=== PATIENT | female | born 1955 | race Caucasian/White ===

== ENCOUNTER 2017-01-30 13:29 | Outpatient (CLI) | payer OTHER ==
--- NOTE | 2017-01-30 15:39 | CARDIAC PROCEDURE NOTE ---
DATE OF SERVICE: 01/30/2017 00:00:00 PRIMARY CARE PHYSICIAN: Kae Munoz PA-C, [facility]. PROCEDURE: Cardiac treadmill stress test. PROCEDURE SYMPTOMS: Chest pain and dizziness. CARDIAC RISK FACTORS: Include age. PREVIOUS CARDIAC PROCEDURES: None. CLINICAL HISTORY: A 61-year-old female without known coronary artery disease. INITIAL RESTING VITAL SIGNS: Blood pressure 122/66, heart rate 57, height 59 inches, weight 220 pound s, BMI 44.4. PROCEDURE AND FINDINGS: The patient's identity and date verified. Consent signed. The patient p erformed treadmill exercise using a modified Dick protocol, completing 7 minutes 17 seconds and comp leting an estimated workload of 5.8 metabolic equivalents. Maximal blood pressure was 144/76 with a h eart rate of 149 beats per minute or 93% of maximum predicted heart rate for age. The blood pressure response to exercise was within normal limits. The patient stopped because of fatigue. The resting EC G demonstrated normal sinus rhythm with no abnormality. Maximum ST segment depression was less than 0 .5 mm and upsloping. There was no ectopy. FINAL IMPRESSION 1. Modified Dick used as patient was unable to tolerate speeds at stage 2. 2. Negative stress electrocardiogram for ischemia by electrocardiographic criteria. 3. Negative stress test clinically for angina. 4. No ectopy nor arrhythmia. 5. Achieved predicted time and METs for sedentary woman of this age. JOB #: [id number] EXT JOB #:[id number]
--- NOTE | 2017-02-05 09:10 | XRAY Report ---
There was no imaging performed for this exam. Procedure notes and results available in the EMR. PRIYA
[2017-02-06 17:54] VITALS: BP 122/66
== END 2017-01-30 13:30 | disposition home or self-care (01) ==
LOC: DI 13:29
PROVIDERS: ATTEND Physician Assistant
DX: R07.2 Precordial pain (principal)
CPT/HCPCS: 93017

== ENCOUNTER 2017-09-11 13:39 | Emergency (ER) | payer OTHER ==
[2017-09-11] MEDS ORDERED: ALPRAZolam 0.25 MG TABLET PO STA (14:38)
[2017-09-11 14:46] LABS: BILIRUBIN,URINE NEGATIVE (NEGATIVE); GLUCOSE, URINE (UA) NEGATIVE (NEGATIVE); KETONES,URINE (UA) TRACE mg/dL (NEGATIVE); LEUKOCYTE ESTERASE, URINE NEGATIVE (NEGATIVE); NITRITE,URINE NEGATIVE (NEGATIVE); OCCULT BLOOD,URINE NEGATIVE (NEGATIVE); PH,URINE 6.5 PH (5.0-7.5); PROTEIN,URINE NEGATIVE (NEGATIVE); UROBILINOGEN,URINE 0.2 (NORMAL) E.U./dL (NORMAL)
[2017-09-11 14:47] LABS: CLARITY,URINE CLEAR (CLEAR)
--- NOTE | 2017-09-11 16:18 | MRI Report ---
EXAM: MRI LUMBAR SPINE WITHOUT CONTRAST EXAM DATE: 09/11/2017 03:42 PM. CLINICAL HISTORY: Low back pain. Left leg and groin pain and numbness and tingling. COMPARISON: None. TECHNIQUE: Multiplanar, multisequence T1-weighted and fluid-sensitive sequences of the lumbar spine f rom T12 to S1 without contrast. Other: None. FINDINGS: Spinal Cord: The conus terminates at L1-L2. The conus medullaris and cauda equina are unremarkable. Alignment: Grade 1 anterolisthesis at L4-L5 by approximately 2 mm. Bone Marrow: Five uvs-ykd-ehdonec lumbar vertebral bodies are assumed. No gross fractures or bone les ions. No bone marrow edema. Disk Levels/Facets: T12-L1: Unremarkable. L1-L2: Unremarkable. L2-L3: Mild to moderate facet arthropathy. No stenoses. L3-L4: Small right foraminal disk protrusion. Moderate to severe ligamentum flavum thickening. Modera te to severe facet arthropathy. Mild canal stenosis. Mild right foraminal stenosis. L4-L5: Minimal diffuse disk bulge. Severe ligamentum flavum thickening and facet arthropathy. Small f acet joint effusions. Mild to moderate canal stenosis. Mild to moderate right and moderate left elisabeth inal stenoses. L5-S1: Hypoplastic disk. The left side of L5 vertebral segment is sacralized. No stenoses. Mild left facet arthropathy. Musculature: Mild fatty atrophy of the posterior paraspinal muscles. Other: The partially visualized retroperitoneum is unremarkable. IMPRESSION: 1. Multilevel degenerative disk changes, ligamentum flavum thickening, and facet arthropathy. The mor e significant levels are L4-L5 and L3-L4. 2. Minimal diffuse disk bulge at L4-L5. Gdlv-qi-aurtqyoa canal stenosis. Lqps-ms-hhzoffmt right and m oderate left foraminal stenoses. 3. Small right foraminal disk protrusion at L3-L4. Mild canal and right foraminal stenoses. 4. Grade 1 degenerative anterolisthesis at L4-L5. Comment: The following findings are so common in adults without low back pain that while we report th eir presence, they must be interpreted with caution and in the context of the clinical situation. (Re britta Garcia et al, Spine 2001) Prevalence of findings in patients without low back pain: Disk degeneration (any evidence): 92% Disk desiccation/T2 signal loss: 83% Disk height loss: 56% Disk bulge: 64% Disk protrusion: 32% Annular tear/high intensity zone: 38% [facility] Referring Provider Line: [phone] SITE ID: [id number]
[2017-09-11 16:19] VITALS: BP 124/69
--- NOTE | 2017-09-11 16:23 | ED Physician Documentation ---
PD HPI BACK PAIN - Stated complaint Stated Complaint: HEADACHE/NECK PX-BACK-LEG PX--NUMBNESS - Chief complaint Chief Complaint: General - History obtained from History obtained from: Patient - History of Present Illness Timing - duration: Months (many) Timing - details: Still present Location: Lower, Left Quality: Pain Associated symptoms: Numbness (left leg) Recently seen: Clinic - Additional information Additional information: The patient is a 61-year-old female who presents with lower back pain radiating down her left leg. She has had similar pain waxing and waning for months, but presents now because of numbness in her left leg. She was seen by her primary physician in clinic today and was sent to the emergency department for further evaluation. She denies any recent injury. She denies fever or dysuria. She has chronic urinary incontinence. In addition to numbness in her left leg she reports numbness in her left perineal region. Review of Systems Constitutional: denies: Fever Nose: denies: Congestion Cardiac: denies: Chest pain / pressure Respiratory: denies: Dyspnea, Cough GI: denies: Abdominal Pain, Nausea, Vomiting : reports: Incontinent (chronically). denies: Dysuria Skin: denies: Rash Musculoskeletal: reports: Back pain (lower back). denies: Neck pain Neurologic: reports: Numbness (left leg.). denies: Focal weakness, Headache PD PAST MEDICAL HISTORY - Past Medical History Past Medical History: Yes Endocrine/Autoimmune: HyPOthyroidism Other Past Medical History: Short time memory - Past Surgical History Past Surgical History: Yes /[employer]: section - Present Medications Home Medications: Ambulatory Orders Medication Instructions Recorded Confirmed predniSONE [Prednisone] 30 mg PO DAILY #15 tablet 09/11/17 - Allergies Allergies/Adverse Reactions: Allergies Allergy/AdvReac Type Severity Reaction Status Date / Time No Known Drug Allergies Allergy Verified 09/11/17 14:04 - Social History Does the pt smoke?: No Smoking Status: Never smoker Does the pt drink ETOH?: No Does the pt have substance abuse?: No - Immunizations Immunizations are current?: Yes - POLST Patient has POLST: No PD ED PE NORMAL - Vitals Vital signs reviewed: Yes (hypertensive) - General General: Alert and oriented X 3, Well developed/nourished, Other (obese) - HEENT HEENT: Atraumatic - Neck Neck: No bony TTP, No adenopathy - Cardiac Cardiac: RRR, No murmur - Respiratory Respiratory: No respiratory distress, Clear bilaterally - Abdomen Abdomen: Soft, Non tender - Back Back: No CVA TTP, No spinal TTP, Other (There is tenderness to palpation over the left sacroiliac region. No tenderness over the spinous processes.) - Derm Derm: No rash - Extremities Extremities: No edema, No calf tenderness / cord, Other (Straight leg raise test is negative bilaterally.) - Neuro Neuro: Alert and oriented X 3, No motor deficit, Other (There is decreased light touch sensation on the lateral aspect of the left lower leg. Deep tendon reflexes are 2+ and equal bilaterally at the patellar and Achilles tendons.) Results - Vitals Vitals: Oxygen O2 Source Room air - Labs Labs: Laboratory Tests 09/11/17 14:23 Urine Color YELLOW Urine Clarity CLEAR Urine pH 6.5 Ur Specific [place] 1.020 Urine Protein NEGATIVE Urine Glucose (UA) NEGATIVE Urine Ketones TRACE Urine Occult Blood NEGATIVE Urine Nitrite NEGATIVE Urine Bilirubin NEGATIVE Urine Urobilinogen 0.2 (NORMAL) Ur Leukocyte Esterase NEGATIVE Ur Microscopic Review NOT INDICATED Urine Culture Comments NOT INDICATED - Rads (name of study) MRI lumbar spine Radiology: Prelim report reviewed, EMP read contemporaneously, See rad report (1 ) Multilevel degenerative disc changes, ligamentum flavum thickening, and facet arthropathy. The more significant levels are L4-L5 and L3-L4. 2) Minimal diffuse disc bulge at L4-L5. Mild to moderate canal stenosis. Mild to moderate right and moderate left foraminal stenoses. 3) Small right foraminal disc protrusion at L3-L4. Mild canal and right foraminal stenoses. 4) grade 1 degenerative anterolisthesis at L4-L5.) PD MEDICAL DECISION MAKING - ED course Complexity details: reviewed results, re-evaluated patient, considered differential, d/w patient, d/w family ED course: The patient's presentation is most consistent with lower back pain with left sided radiculopathy. An MRI of the lumbar spine revealed multilevel degenerative arthropathy, as well as mild to moderate canal stenosis, and moderate left foraminal stenoses. Treatment in the emergency department included administration of dexamethasone 10 mg orally. Because of claustrophobia, the patient was given Xanax 0.5 mg orally prior to going into the MRI scanner. Her symptoms improved with the above treatment. She is being discharged with prescription for prednisone. I discussed with her and her family the results of the MRI scan, symptomatic treatment and outpatient follow-up, as well as potentially worrisome signs or symptoms that should prompt reevaluation in the emergency department. Departure - Departure Disposition: 01 Home, Self Care Clinical Impression: Low back pain radiating to left leg, Lumbar radiculopathy Condition: Stable Instructions: ED Sciatica Follow-Up: DONNY ZARAGOZA MD [Primary Care Provider] - Prescriptions: predniSONE [Prednisone] 30 mg PO DAILY #15 tablet Comments: Apply ice pack to your lower back intermittently. Take prednisone daily for the next 5 days as prescribed. You can use ibuprofen, up to 800 mg 3 times daily for its anti-inflammatory effect. Let pain be your guide to activity level. Follow up with your primary physician within 2 weeks. Call to schedule appointment. Return to the emergency department if you develop increasing back pain, increasing numbness or weakness, or otherwise worsening symptoms. Discharge Date/Time: 09/11/17 16:42
[2017-09-11] MEDS ORDERED: DEXAMETHASONE 10 MG/ML VIAL PO STA (16:32)
== END 2017-09-11 16:42 | disposition home or self-care (01) ==
LOC: ED 13:39
DX: M54.5 Low back pain (principal); M54.16 Radiculopathy, lumbar region; E03.9 Hypothyroidism, unspecified
CPT/HCPCS: 72148; 81003; 99283; 99284; A9270; 81001; 87086

== ENCOUNTER 2018-12-03 06:43 | Day surgery (SDC) | payer OTHER ==
[2018-12-03] MEDS ORDERED: PHENYLEPHRINE 2.5% OPHTH 2 ML DROPS ONE (06:44)
[2018-12-03] MEDS ORDERED: KETOROLAC 0.45% OPHTH DROPS ONE (06:44)
[2018-12-03] MEDS ORDERED: CYCLOPENTOLATE 1% OPHTH DROPS 2 ML ONE (06:44)
[2018-12-03] MEDS ORDERED: LACTATED RINGERS 500 ML IV ONE (06:44)
[2018-12-03] MEDS ORDERED: PROPARACAINE 0.5% OPHTH DROPS 15 ML ONE (06:45)
[2018-12-03] MEDS ORDERED: PROPARACAINE 0.5% OPHTH DROPS 15 ML LEFTEYE ONE (07:00)
[2018-12-03] MEDS ORDERED: CYCLOPENTOLATE 1% OPHTH DROPS 2 ML LEFTEYE ONE (07:00)
[2018-12-03] MEDS ORDERED: PHENYLEPHRINE 2.5% OPHTH 2 ML DROPS LEFTEYE ONE (07:00)
[2018-12-03] MEDS ORDERED: KETOROLAC 0.45% OPHTH DROPS LEFTEYE ONE (07:00)
[2018-12-03] MEDS ORDERED: VANCOMYCIN OPHTHALMI 8MG/0.8ML 8 MG/0.8 ML SYRINGE IO ONE ×2 (07:06→08:13)
[2018-12-03] MEDS ORDERED: BRIMONIDINE 0.2% OPHTH DROPS 5 ML ONE (07:06)
[2018-12-03] MEDS ORDERED: TIMOLOL 0.5% OPHTH DROPS ONE (07:06)
[2018-12-03] MEDS ORDERED: BSS/LIDOCAINE/EPINEPHRINE 1 ML SYRINGE ONE (07:06)
[2018-12-03] MEDS ORDERED: TRIAMCIN/MOXIFLOX OPHTHALMIC 0.6 ML VIAL IO ONE ×2 (07:06→08:13)
--- NOTE | 2018-12-03 07:30 | ANESTHESIA ---
Pre-Anesthesia VS, & Labs - Diagnosis left eye senile combined cataract - Procedure cataract extraction with probable intraocular lens implant left eye Height 4 ft 11 in Weight (kg) 101 kg Body Mass Index 44.8 - NPO >8 hours - Is Patient ?: No Home Medications and Allergies Home Medications: Ambulatory Orders Donepezil HCl 10 mg PO DAILY 12/02/18 Levothyroxine Sodium [Synthroid] 50 mcg PO DAILY 12/02/18 Methocarbamol 250 mg PO DAILY 12/02/18 Pantoprazole [Protonix] 40 mg PO DAILY 12/02/18 Donepezil HCl 10 mg PO DAILY 12/02/18 Levothyroxine Sodium [Synthroid] 50 mcg PO DAILY 12/02/18 Methocarbamol 250 mg PO DAILY 12/02/18 Pantoprazole [Protonix] 40 mg PO DAILY 12/02/18 Allergies/Adverse Reactions: Allergies Allergy/AdvReac Type Severity Reaction Status Date / Time No Known Drug Allergies Allergy Verified 09/11/17 14:04 Anes History & Medical History - Anesthetic History Anesthesia Complications: reports: No previous complications - Medical History Cardiovascular: reports: None Pulmonary: reports: None Gastrointestinal: reports: GERD (controlled with medication) Urinary: reports: None Neuro: reports: None Musculoskeletal: reports: None Endocrine/Autoimmune: reports: HyPOthyroidism Skin: reports: None Smoking Status: Never smoker Psychosocial: reports: No issues indicated - Surgical History General: Other (gastric bypass) Gynecologic: section Exam General: Alert, Oriented x3, Cooperative, No acute distress Dental: WNL Mouth Openin Fingerbreadth Neck Mobility: Normal Mallampati classification: I Thyromental Distance: greater than 6 cm Respiratory: Lungs clear, Normal breath sounds, No respiratory distress, No accessory muscle use Cardiovascular: Regular rate, Normal S1, Normal S2, No murmurs Mental/Cognitive Status: Alert/Oriented X3, Normal for patient Plan Anesthesia Type: MAC Consent for Procedure(s) Verified and Reviewed: Yes Code Status: Attempt Resuscitation ASA classification: 2-Mild systemic disease Is this case an emergency?: No
[2018-12-03] MEDS ORDERED: fentaNYL 100 MCG/2 ML VIAL IVP ONE (08:00)
[2018-12-03] MEDS ORDERED: MIDAZOLAM 2 MG/2 ML VIAL IVP ONE (08:00)
[2018-12-03] MEDS ORDERED: EPINEPHrine 1 MG/ML AMP IVP ONE (08:12)
[2018-12-03] MEDS ORDERED: TIMOLOL 0.5% OPHTH DROPS OPTH ONE (08:12)
[2018-12-03] MEDS ORDERED: CHONDR SULF/HYALURONATE SYRINGE IO ONE (08:12)
[2018-12-03] MEDS ORDERED: BSS/LIDOCAINE/EPINEPHRINE 1 ML SYRINGE IO ONE (08:12)
[2018-12-03] MEDS ORDERED: BRIMONIDINE 0.2% OPHTH DROPS 5 ML OPTH ONE (08:12)
[2018-12-03 08:33] VITALS: BP 118/65
--- NOTE | 2018-12-03 08:38 | OPERATIVE REPORT ---
DATE OF SERVICE: 12/03/2018 Physician: Jasbir Billings MD PREOPERATIVE DIAGNOSIS: Visually significant cataract, left eye. This was her first cataract surgery. POSTOPERATIVE DIAGNOSIS: Visually significant cataract, left eye. PROCEDURE: Phacoemulsification with posterior chamber intraocular lens implant, left eye. SURGEON: Dr. Jasbir Billings. ANESTHESIA: Monitored anesthesia care. COMPLICATIONS: None. OPERATIVE INDICATIONS: This is a 63-year-old woman with progressive vision loss in the left eye due to 1+ nuclear sclerotic and 3+ cortical cataract. Best corrected visual acuity was 20/20 with glare to 20/60 in the left eye. Indications for surgery are difficulty seeing words on a computer screen, difficulty reading, difficulty seeing words, closed captions or game scores on TV, difficulty seeing street signs, difficulty driving in low light or at night, difficulty driving at night because of hea dlights from other vehicles, and difficulty with glare or bright lights in any situation. She was co nsented at length concerning risks and benefits of cataract surgery, after which she expressed a martha re to proceed with surgery. OPERATIVE PROCEDURE: Patient was taken into OR #3 and placed under monitored anesthesia care. A donna gical timeout was conducted confirming correct patient, correct procedure, and correct surgical site. She was given topical anesthesia, then prepped and draped in the usual sterile fashion. The eye was entered at the 6 and 3 o'clock positions. Intracameral Shugarcaine was injected into the anterior chamber, followed by Viscoat. A continuous-tear curvilinear capsulorrhexis was performed. The nucleus was hydrodissected and phacoemulsified. The cortex was evacuated using automated infusi on and aspiration. Provisc was injected in the capsular bag, and a 22.0 diopter intraocular lens ins erted in the bag. Approximately 0.8 mL of a mixture of triamcinolone, moxifloxacin and vancomycin wa s injected subconjunctivally in the superior quadrant for infection and inflammation prophylaxis. I and A was used to evacuate the viscoelastic materials. The eye was inflated to physiologic pressure using a balanced salt solution and found to be watertight. Patient was taken from the operating room in good condition and given postoperative instructions. TD: 12/03/2018 08:31
== END 2018-12-03 06:44 | disposition home or self-care (01) ==
LOC: SDS 06:43
PROVIDERS: ATTEND Ophthalmology
PROC: 08RK3JZ Replacement of Left Lens with Synthetic Substitute, Percutaneous Approach (ICD-10-PCS; principal; 2018-12-03 08:00)
DX: H25.812 Combined forms of age-related cataract, left eye (principal); R20.0 Anesthesia of skin; F40.240 Claustrophobia; K21.9 Gastro-esophageal reflux disease without esophagitis; E03.9 Hypothyroidism, unspecified; Z79.899 Other long term (current) drug therapy; Z98.84 Bariatric surgery status; Z78.0 Asymptomatic menopausal state
CPT/HCPCS: 66984; A9270; J3490; V2632

== ENCOUNTER 2023-04-23 16:55 | Outpatient (CLI) | payer MEDICARE, OTHER ==
[2023-04-23 20:36] LABS: BASOPHILS # (AUTO) 0.1 10^3/uL (0.0-0.1); BASOPHILS % (AUTO) 1.5 %; EOSINOPHILS # (AUTO) 0.1 10^3/uL (0.0-0.7); EOSINOPHILS % (AUTO) 3.3 %; HCT - HEMATOCRIT 38.9 % (37.0-47.0); HGB - HEMOGLOBIN 11.6 g/dL (12.0-16.0); LYMPHOCYTES # (AUTO) 2.3 10^3/uL (1.5-3.5); LYMPHOCYTES % (AUTO) 58.5 %; MEAN CORPUSCULAR HEMOGLOBIN 20.9 pg (27.0-31.0); MEAN CORPUSCULAR HGB CONC 29.8 g/dL (32.0-36.0); MEAN CORPUSCULAR VOLUME 70.1 fL (81.0-99.0); MEAN PLATELET VOLUME 11.3 fL (7.9-10.8); MONOCYTES # (AUTO) 0.3 10^3/uL (0.0-1.0); MONOCYTES % (AUTO) 6.5 %; NEUTROPHILS # (AUTO) 1.2 10^3/uL (1.5-6.6); NEUTROPHILS % (AUTO) 30.2 %; PLT - PLATELET COUNT 243 10^3/uL (130-450); RED BLOOD COUNT 5.55 10^6/uL (4.20-5.40); RED CELL DISTRIBUTION WIDTH 18.4 % (12.0-15.0)
[2023-04-23 20:40] LABS: % IRON SATURATION 10 % (20-50); ALBUMIN 4.4 g/dL (3.2-5.5); ALBUMIN/GLOBULIN RATIO 1.7 (1.0-2.2); ALKALINE PHOSPHATASE 75 IU/L (42-121); ALT ALANINE AMINOTRANSFERASE 8 IU/L (10-60); AST ASPARTATE AMINOTRANSFERASE 16 IU/L (10-42); BILIRUBIN,TOTAL 0.6 mg/dL (0.2-1.0); BUN - BLOOD UREA NITROGEN 14 mg/dL (6-20); CARBON DIOXIDE - CO2 30 mmol/L (21-32); CHLORIDE 104 mmol/L (101-111); CHOL/HDL RATIO 3.9 (<4.4); CHOLESTEROL 235 mg/dL; CREATININE 0.7 mg/dL (0.6-1.3); GFR - MDRD 102 (>89); GLUCOSE 97 mg/dL (74-104); HDL CHOLESTEROL 60 mg/dL; IRON 39 ug/dL (50-212); LDL CHOLESTEROL,CALCULATED 162 mg/dL; LDL/HDL RATIO 2.7 (<4.4); POTASSIUM 3.5 mmol/L (3.5-4.5); SODIUM 140 mmol/L (135-145); TOTAL IRON BINDING CAPACITY 391 ug/dL (250-450); TRANSFERRIN 279 mg/dL (203-362); TRIGLYCERIDES 66 mg/dL (48-352); VLDL CHOLESTEROL 13 mg/dL
[2023-04-23 20:46] LABS: BILIRUBIN,URINE NEGATIVE (NEGATIVE); GLUCOSE, URINE (UA) NEGATIVE (NEGATIVE); KETONES,URINE (UA) TRACE mg/dL (NEGATIVE); LEUKOCYTE ESTERASE, URINE NEGATIVE (NEGATIVE); NITRITE,URINE NEGATIVE (NEGATIVE); OCCULT BLOOD,URINE NEGATIVE (NEGATIVE); PROTEIN,URINE NEGATIVE (NEGATIVE); UROBILINOGEN,URINE 0.2 (NORMAL) E.U./dL (NORMAL)
[2023-04-23 20:47] LABS: CLARITY,URINE CLEAR (CLEAR)
[2023-04-23 21:20] LABS: THYROID STIMULATING HORMONE 1.03 uIU/mL (0.34-5.60)
[2023-04-23 21:27] LABS: FERRITIN 5.7 ng/mL (11.0-306.8)
[2023-04-25 08:10] LABS: VITAMIN D 25-HYDROXY 46.8 ng/mL (30.0-100.0)
== END 2023-04-23 16:56 | disposition home or self-care (01) ==
LOC: LAB.N 16:55
PROVIDERS: ATTEND Nurse Practitioner
DX: R53.83 Other fatigue (principal); R03.0 Elevated blood-pressure reading, without diagnosis of hypertension; Z13.220 Encounter for screening for lipoid disorders; Z98.84 Bariatric surgery status; E03.9 Hypothyroidism, unspecified
CPT/HCPCS: 36415; 80053; 80061; 81001; 81003; 82306; 82607; 82728; 82746; 83540; 83721; 83970; 84425; 84439; 84443; 84466; 84590; 85025

== ENCOUNTER 2023-06-09 16:56 | Outpatient (CLI) | payer MEDICARE, OTHER ==
[2023-06-09 20:52] LABS: HCT - HEMATOCRIT 40.7 % (37.0-47.0); MEAN CORPUSCULAR HEMOGLOBIN 20.7 pg (27.0-31.0); MEAN CORPUSCULAR HGB CONC 29.5 g/dL (32.0-36.0); MEAN CORPUSCULAR VOLUME 70.2 fL (81.0-99.0); PLT - PLATELET COUNT 225 10^3/uL (130-450); RED CELL DISTRIBUTION WIDTH 18.2 % (12.0-15.0); WHITE BLOOD COUNT 4.1 x10^3/uL (4.8-10.8)
[2023-06-09 21:22] LABS: FERRITIN 6.5 ng/mL (11.0-306.8)
== END 2023-06-09 16:57 | disposition home or self-care (01) ==
LOC: LAB.N 16:56
PROVIDERS: ATTEND Nurse Practitioner
DX: D64.9 Anemia, unspecified (principal)
CPT/HCPCS: 36415; 82607; 82728; 83540; 84466; 85027

== ENCOUNTER 2023-06-21 12:40 | Outpatient (CLI) | payer MEDICARE, OTHER ==
--- NOTE | 2023-06-21 21:40 | Ultrasound Report ---
PROCEDURE: Pelvic w/Transvaginal INDICATIONS: UTERINE FIBROIDS TECHNIQUE: Real-time scanning was performed of the pelvic organs, with image documentation. Additional endovagi nal scanning was necessary due to incomplete visualization of the adnexal and endometrial structures by transabdominal scanning. COMPARISON: None. FINDINGS: Uterus: Uterus is anteverted and normal in size at 6.3 x 4.4 x 3.0 cm. The myometrium is heterogene ous. The endometrium measures 4 mm in combined thickness. Multiple uterine fibroids are seen as fol lows: A left anterior intramural fibroid measures 1.6 x 1.6 x 1.1 cm A calcified right posterior subserosal/pedunculated fibroid measures 2.0 x 1.6 x 1.8 cm. A right anterior intramural and subserosal fibroid measures 1.4 x 1.4 x 1.1 cm Ovaries: The right ovary measures 1.9 x 1.2 x 1.2 cm, with a calculated ovarian volume of 1.4 cc. T he left ovary measures 1.3 x 1.2 x 1.5 cm, with a calculated ovarian volume of 1.3 cc. The ovaries h ave a normal sonographic appearance. Less than 12 follicles can be seen in each ovary. No adnexal m asses are seen. No cystic lesions measuring greater than 3 cm. Other: No pathologic free abdominal or pelvic fluid. IMPRESSION: Multiple uterine fibroids, largest of which measures up to 2.0 cm. Reviewed by: Ashok Melton MD on 06/21/2023 9:39 PM PST Approved by: Ashok Melton MD on 06/21/2023 9:39 PM PST Station ID: [id number]
== END 2023-06-21 12:41 | disposition home or self-care (01) ==
LOC: DI 12:40
PROVIDERS: ATTEND Nurse Practitioner
DX: D25.1 Intramural leiomyoma of uterus (principal); D25.2 Subserosal leiomyoma of uterus

== ENCOUNTER 2023-07-25 13:20 | Outpatient (CLI) | payer MEDICARE, OTHER ==
--- NOTE | 2023-08-05 08:59 | Mammography Report ---
BILATERAL DIGITAL SCREENING MAMMOGRAM 3D/2D: 07/25/2023 CLINICAL: Routine screening. Comparison is made to exams dated: 07/06/2021 mammogram - [facility], 09/16/2016 mammogram, and 08/24 mammogram - [facility]. Both breasts are almost entirely fatty (category a/<25% glandular tissue). No significant masses, calcifications, or other findings are seen in either breast. There has been no significant interval change. IMPRESSION: NEGATIVE There is no mammographic evidence of malignancy. A 1 year screening mammogram is recommended. Based on the Tyrer Cuzick model (a risk assessment model) the patient's lifetime risk is 4.2% and her 10 year risk is 2.0%. According to the ACR, ACS, and NCCN guidelines, an annual breast MRI exam sukhdev g with mammogram is recommended if the patient's lifetime risk is 20% or greater. This exam was interpreted at Station ID: [id number]. NOTE: For mammograms, a report in lay terms will be sent to the patient. Approximately 15% of breast malignancies will not be visualized mammographically. In the management of a palpable breast mass, a negative mammogram must not discourage biopsy of a clinically suspicious lesion. Electronically Signed By: Shantell gan/ba:08/04/2023 09:38:22 ACR BI-RADS Category 1: Negative 3341F PARENCHYMAL PATTERN: (F) - The breast(s) demonstrate(s) diffuse fatty replacement. BI-RADS CATEGORY: (1) - 1 RECOMMENDATION: (ANNUAL) - Recommend routine annual screening mammography. [id number] 1 year screening LATERALITY: (B)
== END 2023-07-25 13:21 | disposition home or self-care (01) ==
LOC: DI 13:20
DX: Z12.31 Encounter for screening mammogram for malignant neoplasm of breast (principal)

== ENCOUNTER 2023-08-06 09:16 | Day surgery (SDC) | payer MEDICARE, OTHER ==
[2023-08-06] MEDS: LACTATED RINGERS 1,000 ML IV ONE (09:30)
[2023-08-06] MEDS ORDERED: PROPOFOL 500 MG/50 ML 500 MG/50 ML VIAL ONE (09:55)
--- NOTE | 2023-08-06 10:25 | ANESTHESIA ---
Pre-Anesthesia VS, & Labs - Diagnosis anemia - Procedure EGD, colonoscopy Vital Signs: Temp Pulse Resp BP Pulse Ox O2 Flow Rate 36.2 C L 68 16 165/84 H 99 08/06/23 09:37 08/06/23 09:37 08/06/23 09:37 08/06/23 09:37 08/06/23 09:37 Height: 4 ft 9 in Weight (kg): 98.4 kg Body Mass Index: 46.9 BMI Classification: Morbidly Obese - NPO >8 hours - Is Patient ?: No Home Medications and Allergies Home Medications: Ambulatory Orders polyethylene glycoL 3350 [Miralax] 17 gm PO DAILY 07/29/23 Levothyroxine Sodium [Synthroid] 50 mcg PO DAILY 12/02/18 Pantoprazole [Protonix] 40 mg PO DAILY 12/02/18 Celecoxib [Celebrex] 200 mg PO DAILY 07/25/23 Lidocaine Patch 5% [Lidoderm Patch] 1 each TOP DAILY 07/25/23 polyethylene glycoL 3350 [Miralax] 17 gm PO DAILY 07/29/23 Allergies/Adverse Reactions: Allergies Allergy/AdvReac Type Severity Reaction Status Date / Time No Known Drug Allergies Allergy Verified 07/25/23 18:08 Anes History & Medical History - Anesthetic History Anesthesia Complications: reports: No previous complications Family history of Anesthesia Complications: Denies Family history of Malignant Hyperthermia: Denies - Medical History Cardiovascular: reports: None Pulmonary: reports: None Gastrointestinal: reports: GERD Urinary: reports: None Neuro: reports: None Musculoskeletal: reports: None Endocrine/Autoimmune: reports: HyPOthyroidism Skin: reports: None Smoking Status: Never smoker - Surgical History General: reports: Other Eyes Ears Nose Throat (EENT): reports: Other Gynecologic: reports: section Exam General: Alert, Oriented x3, Cooperative Dental: WNL Mouth Openin Fingerbreadth Neck Mobility: Normal Thyromental Distance: 4-6 cm Respiratory: Lungs clear Cardiovascular: Regular rate Plan Anesthesia Type: General, Total IV Consent for Procedure(s) Verified and Reviewed: Yes Code Status: Attempt Resuscitation ASA classification: 2-Mild systemic disease Is this case an emergency?: No
[2023-08-06] MEDS ORDERED: MIDAZOLAM 2 MG/2 ML VIAL ONE (10:41)
[2023-08-06] MEDS ORDERED: LIDOCAINE-MPF 2% 5 ML VIAL ONE (10:42)
[2023-08-06] MEDS ORDERED: PROPOFOL 200 MG/20 ML VIAL IVP ONE (11:25)
[2023-08-06] MEDS: LACTATED RINGERS 500 ML IV ONE (11:35)
[2023-08-06 11:53] VITALS: BP 144/70; O2SAT 100
== END 2023-08-06 09:17 | disposition home or self-care (01) ==
LOC: SDS 09:16
PROVIDERS: ATTEND Surgery
PROC: 0DBN8ZX Excision of Sigmoid Colon, Via Natural or Artificial Opening Endoscopic, Diagnostic (ICD-10-PCS; 2023-08-06)
PROC: 0DBH8ZX Excision of Cecum, Via Natural or Artificial Opening Endoscopic, Diagnostic (ICD-10-PCS; 2023-08-06)
PROC: 0DB48ZX Excision of Esophagogastric Junction, Via Natural or Artificial Opening Endoscopic, Diagnostic (ICD-10-PCS; principal; 2023-08-06 09:45)
PROC: 0DBK8ZX Excision of Ascending Colon, Via Natural or Artificial Opening Endoscopic, Diagnostic (ICD-10-PCS; 2023-08-06 09:45)
DX: Z12.11 Encounter for screening for malignant neoplasm of colon (principal); Z13.810 Encounter for screening for upper gastrointestinal disorder; D12.0 Benign neoplasm of cecum; D12.2 Benign neoplasm of ascending colon; D12.5 Benign neoplasm of sigmoid colon; K21.9 Gastro-esophageal reflux disease without esophagitis; K22.89 Other specified disease of esophagus; E03.9 Hypothyroidism, unspecified; D64.9 Anemia, unspecified; Z98.84 Bariatric surgery status; E66.01 Morbid (severe) obesity due to excess calories; Z68.42 Body mass index [BMI] 45.0-49.9, adult
CPT/HCPCS: 43239; 45380; J7120

== ENCOUNTER 2023-12-26 09:55 | Outpatient (CLI) | payer MEDICARE, OTHER ==
[2023-12-26 10:05] LABS: BASOPHILS # (AUTO) 0.1 10^3/uL (0.0-0.1); BASOPHILS % (AUTO) 1.2 %; EOSINOPHILS # (AUTO) 0.1 10^3/uL (0.0-0.7); EOSINOPHILS % (AUTO) 2.6 %; HCT - HEMATOCRIT 41.3 % (37.0-47.0); HGB - HEMOGLOBIN 12.6 g/dL (12.0-16.0); LYMPHOCYTES # (AUTO) 2.5 10^3/uL (1.5-3.5); LYMPHOCYTES % (AUTO) 60.5 %; MEAN CORPUSCULAR HEMOGLOBIN 21.5 pg (27.0-31.0); MEAN CORPUSCULAR HGB CONC 30.5 g/dL (32.0-36.0); MEAN CORPUSCULAR VOLUME 70.4 fL (81.0-99.0); MEAN PLATELET VOLUME 10.7 fL (7.9-10.8); MONOCYTES # (AUTO) 0.4 10^3/uL (0.0-1.0); MONOCYTES % (AUTO) 8.6 %; NEUTROPHILS # (AUTO) 1.1 10^3/uL (1.5-6.6); NEUTROPHILS % (AUTO) 26.9 %; PLT - PLATELET COUNT 203 10^3/uL (130-450); RED BLOOD COUNT 5.87 10^6/uL (4.20-5.40); RED CELL DISTRIBUTION WIDTH 15.8 % (12.0-15.0); WHITE BLOOD COUNT 4.2 x10^3/uL (4.8-10.8)
[2023-12-26 10:20] LABS: ALBUMIN 4.4 g/dL (3.2-5.5); ALBUMIN/GLOBULIN RATIO 1.9 (1.0-2.2); BILIRUBIN,TOTAL 0.8 mg/dL (0.2-1.0); CALCIUM 9.9 mg/dL (8.5-10.3); CREATININE 0.8 mg/dL (0.6-1.3); POTASSIUM 4.3 mmol/L (3.5-4.5); TOTAL PROTEIN 6.7 g/dL (6.4-8.9)
== END 2023-12-26 09:56 | disposition home or self-care (01) ==
LOC: LAB 09:55
PROVIDERS: ATTEND Surgery
DX: K21.9 Gastro-esophageal reflux disease without esophagitis (principal); Z98.84 Bariatric surgery status; R13.10 Dysphagia, unspecified
CPT/HCPCS: 36415; 80053; 85025; 93005